=== PATIENT | male | born 1965 | race Caucasian/White ===

== ENCOUNTER 2017-12-12 06:39 | Inpatient (IN) | payer OTHER ==
[~2017-12-12] VITALS: Ht 177.8 cm; Wt 104.3 kg
[2017-12-12 06:51] VITALS: Ht 177.8 cm; Wt 104.3 kg
[2017-12-12 07:38] LABS: CALCIUM 8.4 mg/dL (8.5-10.1); CARBON DIOXIDE 24.4 mmol/L (21-32); CHLORIDE SERUM 102 mmol/L (98-107); GFR1 > 60 mL/min; GLUCOSE SERUM 171 mg/dL (74-106); POTASSIUM SERUM 3.7 mmol/L (3.5-5.1); SODIUM SERUM 135 mmol/L (136-145)
[2017-12-12 07:42] LABS: RED CELL DISTRIBUTION WIDTH 12.9 % (11.5-14.5)
[2017-12-12 07:43] LABS: ALBUMIN 3.8 g/dL (3.4-5.0); ALKALINE PHOSPHATASE 70 U/L (46-116); ALT/SGPT 38 U/L (16-63); AST/SGOT 18 U/L (15-37); BILIRUBIN TOTAL 0.8 mg/dL (0.20-1.00); LIPASE 50 IU/L (73-393); TOTAL PROTEIN, SERUM 7.3 g/dL (6.4-8.2)
[2017-12-12 07:44] LABS: UA SPECIFIC GRAVITY 1.025 (1.005-1.035); microscopic required? YES; urine erythrocyte TRACE (NEGATIVE)
[2017-12-12 07:45] LABS: BASOPHIL % 0 % (0-2); PLATELET COUNT 116 x10^3mcL (130-400)
[2017-12-12 13:09] VITALS: BP 163/84
[2017-12-12 13:19] LABS: CHOLESTEROL/HDL RATIO 3.6; MAGNESIUM 2.2 mg/dL (1.8-2.4); PHOSPHOROUS 3.9 mg/dL (2.5-4.9)
[2017-12-12 13:23] LABS: T3 TOTAL 0.59 ng/mL
[2017-12-12 13:29] LABS: FREE T4 0.95 ng/dL (0.76-1.46); FREE THYROXINE INDEX 1.9 ug/dL (1.4-4.5); T4(THYROXINE) 5.7 ug/dL (4.7-13.3)
[2017-12-12 15:22] LABS: AMPHETAMINE QUAL UR NONE DETECTED (NEG <=1000)
[2017-12-12 17:51] VITALS: BP 124/72
[2017-12-12 21:14] VITALS: BP 115/61
[2017-12-13 05:32] VITALS: BP 107/59
[2017-12-13 05:58] LABS: BASOPHIL % 0.3 % (0-2); RED CELL DISTRIBUTION WIDTH 13.1 % (11.5-14.5)
[2017-12-13 06:18] LABS: CALCIUM 7.9 mg/dL (8.5-10.1); CARBON DIOXIDE 23.3 mmol/L (21-32); CHLORIDE SERUM 106 mmol/L (98-107); CREATININE SERUM 0.8 mg/dL (0.7-1.3); GFR1 > 60 mL/min; GLUCOSE SERUM 119 mg/dL (74-106); POTASSIUM SERUM 3.6 mmol/L (3.5-5.1); SODIUM SERUM 140 mmol/L (136-145)
[2017-12-13 07:05] LABS: PLATELET COUNT 94 x10^3mcL (130-400)
[2017-12-13 09:30] VITALS: BP 109/62
[2017-12-13 12:28] VITALS: BP 93/59
[2017-12-13 17:25] VITALS: BP 142/80
[2017-12-13 21:50] VITALS: BP 121/68
[2017-12-14 05:44] LABS: BASOPHIL % 0.1 % (0-2)
[2017-12-14 06:00] VITALS: BP 104/61
[2017-12-14 06:07] LABS: CALCIUM 8.7 mg/dL (8.5-10.1); CARBON DIOXIDE 24.6 mmol/L (21-32); CHLORIDE SERUM 107 mmol/L (98-107); CREATININE SERUM 0.8 mg/dL (0.7-1.3); GFR1 > 60 mL/min; GLUCOSE SERUM 123 mg/dL (74-106); MAGNESIUM 2.4 mg/dL (1.8-2.4); PHOSPHOROUS 2.7 mg/dL (2.5-4.9); POTASSIUM SERUM 4.1 mmol/L (3.5-5.1); SODIUM SERUM 141 mmol/L (136-145)
[2017-12-14 07:29] LABS: PLATELET COUNT 110 x10^3mcL (130-400)
[2017-12-14 09:55] VITALS: BP 118/68
[2017-12-14 10:00] VITALS: BP 101/85
[2017-12-14] MEDS ORDERED: ZES10 PO (10:12)
[2017-12-14] MEDS ORDERED: LAC PO (11:12)
[2017-12-14] MEDS ORDERED: FLA500 PO (11:12)
== END 2017-12-14 13:33 | disposition home or self-care (01) | DRG 720 ==
LOC: ED 06:39 → DU 11:08
PROVIDERS: Emergency Medicine; Family Medicine; Family Medicine Sports Medicine; Internal Medicine Gastroenterology
PROC: 0DBF8ZX Excision of Right Large Intestine, Via Natural or Artificial Opening Endoscopic, Diagnostic (ICD-10-PCS; principal; 2017-12-14 11:30)
DX: A41.9 Sepsis, unspecified organism (principal); N17.0 Acute kidney failure with tubular necrosis; F17.210 Nicotine dependence, cigarettes, uncomplicated; E66.9 Obesity, unspecified; I10 Essential (primary) hypertension; R73.03 Prediabetes; R31.9 Hematuria, unspecified; E78.5 Hyperlipidemia, unspecified; K76.0 Fatty (change of) liver, not elsewhere classified; F10.10 Alcohol abuse, uncomplicated; K52.9 Noninfective gastroenteritis and colitis, unspecified; Z88.0 Allergy status to penicillin; Z90.49 Acquired absence of other specified parts of digestive tract; Z68.33 Body mass index [BMI] 33.0-33.9, adult
CPT/HCPCS: 45378; 83880; 84439; 87046; 87046-59; 99406; G0480; J1200; J1610; J1885; J1956; J2250; J2310; J2405; J3010; J3480; J3490; J7030; J7040; Q0092